=== PATIENT | male | born 1995 | race Caucasian/White ===

== ENCOUNTER 2017-03-07 22:33 | Emergency (ER) | payer OTHER ==
[2017-03-08 00:03] LABS: BASOPHIL % 0.3 % (0-2); PLATELET COUNT 274 x10^3mcL (130-400); RED CELL DISTRIBUTION WIDTH 12.3 % (11.5-14.5)
[2017-03-08 00:12] LABS: CALCIUM 8.8 mg/dL (8.5-10.1); CARBON DIOXIDE 28.4 mmol/L (21-32); CHLORIDE SERUM 107 mmol/L (98-107); CREATININE SERUM 1.1 mg/dL (0.7-1.3); GFR1 > 60 mL/min; GLUCOSE SERUM 85 mg/dL (74-106); POTASSIUM SERUM 3.5 mmol/L (3.5-5.1); SODIUM SERUM 144 mmol/L (136-145)
[2017-03-08 00:29] LABS: ALBUMIN 3.8 g/dL (3.4-5.0); ALKALINE PHOSPHATASE 86 U/L (46-116); ALT/SGPT 56 U/L (16-63); AST/SGOT 24 U/L (15-37); BILIRUBIN TOTAL 0.4 mg/dL (0.20-1.00); TOTAL PROTEIN, SERUM 7.3 g/dL (6.4-8.2)
[2017-03-08 00:36] LABS: CK-MB 0.9 ng/mL (0-3.6)
[2017-03-08 02:09] VITALS: BP 115/71
== END 2017-03-08 02:09 | disposition home or self-care (01) ==
LOC: ED 22:33
PROVIDERS: Emergency Medicine
DX: R07.89 Other chest pain (principal); R60.0 Localized edema; R06.02 Shortness of breath
CPT/HCPCS: 85378; J7030; Q0092

== ENCOUNTER 2018-03-21 07:54 | Emergency (ER) | payer OTHER ==
[~2018-03-21] VITALS: Ht 188 cm; Wt 119.5 kg
[2018-03-21 08:01] VITALS: Ht 188 cm; Wt 119.5 kg
[2018-03-21 08:57] LABS: microscopic required? NO
[2018-03-21 09:17] LABS: UA SPECIFIC GRAVITY 1.025 (1.005-1.035); urine erythrocyte NEGATIVE (NEGATIVE)
[2018-03-21 11:55] VITALS: BP 138/70
== END 2018-03-21 11:55 | disposition home or self-care (01) ==
LOC: ED 07:54
PROVIDERS: Emergency Medicine
DX: N50.811 Right testicular pain (principal)
CPT/HCPCS: J1885